=== PATIENT | female | born 1985 | race African-American/Black ===

== ENCOUNTER 2021-02-10 15:12 | Emergency (ER) | payer OTHER, SELFPAY ==
--- NOTE | ~2021-02-10 | US_ITS ---
EXAMINATION: US VENOUS ULTRASOUND WITH DOPPLER LOWER EXTREMITY, BILATERAL CLINICAL INFORMATION: Leg swelling after tummy tuck COMPARISON: None TECHNIQUE: Ultrasound of the deep veins is performed from the hip to the calf with compression sonography and color and pulse Doppler assessment. Spectral analysis with color-flow imaging is performed. FINDINGS: RIGHT: There is normal venous compression and respiratory variation and augmented flow. The visualized common femoral vein, superficial femoral vein, profunda femoral vein, popliteal vein, and the trifurcation region shows no evidence of deep venous thrombosis. There is no significant popliteal fossa cyst. LEFT: There is normal venous compression and respiratory variation and augmented flow. The visualized common femoral vein, superficial femoral vein, profunda femoral vein, popliteal vein, and the trifurcation region shows no evidence of deep venous thrombosis. There is no significant popliteal fossa cyst. If the patient's symptoms persist, followup ultrasound in 5 days 7 days might be of value to exclude proximal propagation from a non-visualized calf vein. US/US venous duplex LE BI IMPRESSION: No DVT demonstrated in the bilateral lower extremity.
[2021-02-10 16:05] VITALS: BP 119/75; PULSE 84; RESP 18; TEMP 36.9; O2SAT 100; BMI 49.5
[2021-02-10 18:29] LABS: MANUAL DIFF FLAG NO
[2021-02-10 18:37] LABS: D Dimer 632 NG/ML
[2021-02-10 18:55] LABS: Basophils Percent Auto 0.3 % (0-2); Eosinophils Absolute Auto 0.1 X10*3/uL (0.0-0.4); Eosinophils Percent Auto 1.3 % (0-4); Hematocrit 32.6 % (37-47); Hemoglobin 10.6 g/dl (12.0-16.0); Imm Gran Abs Auto 0.04 X10*3/uL (0.00-0.03); Imm Gran Pct Auto 0.4 % (0.0-0.4); Lymphocytes Absolute Auto 2.1 X10*3/uL (1.2-4.9); Lymphocytes Percent Auto 20.7 % (20-40); Mean Corpuscular HGB Conc 32.5 g/dl (31.0-35.0); Mean Corpuscular Volume 101.6 fL (80-98); Mean Platelet Volume 10.9 fL (9.4-12.3); Monocytes Absolute Auto 0.6 X10*3/uL (0.1-1.2); Monocytes Percent Auto 6.3 % (2-11); Neutrophils Absolute Auto 7.2 X10*3/uL (2.0-8.3); Platelet Count 301 X10*3/uL (160-400); Red Blood Count 3.21 X10*6/uL (4.20-5.50); Red Cell Distribution Width 13.4 % (11.0-16.0); White Blood Count 10.1 X10*3/uL (4.8-10.8)
[2021-02-10 19:07] LABS: Alanine Aminotransferase 17 U/L (0-31); Albumin Level 3.9 g/dL (3.5-5.0); Alkaline Phosphatase 63 U/L (39-117); Anion Gap 12 (12-20); Aspartate Amino Transferase 18 U/L (5-31); Bilirubin Total 0.6 mg/dL (0.0-1.0); Blood Urea Nitrogen 7 mg/dL (9-16); Calcium 8.9 mg/dL (8.4-10.2); Carbon Dioxide 28 mmol/L (22-29); Chloride 105 mmol/L (96-108); Creatinine Clr Calc Pharmacy 177.3; Estimated Glomerular Filt Rate > 60; Glucose Random 92 mg/dL (60-115); Sodium 141 mmol/L (135-145)
--- NOTE | 2021-02-10 20:17 | ED.GENADULT ---
HPI - General Adult General Chief complaint: Extremity Injury, Lower Stated complaint: wound check, leg swelling Time Seen by Provider: 02/10/21 20:17 Source: patient Mode of arrival: ambulatory Limitations: no limitations History of Present Illness HPI narrative: patient with weakness and ankle swelling after a tummy tuck. Surgery was two weeks ago but patient now concerned about DVT Related Data Allergies Allergy/AdvReac Type Severity Reaction Status Date / Time No Known Allergies Allergy Verified 02/10/21 16:05 Review of Systems Neurologic: Denies Sensory deficit (Neuro) [facility] Social History Social History Advance Directives: No Advance Directives Information Provided: Yes Patient : No Physical Exam Vital Signs: Vital Signs: Last Vital Signs Temp 98.5 F 02/10/21 16:05 Pulse 84 02/10/21 16:05 Resp 18 02/10/21 16:05 BP 119/75 02/10/21 16:05 Pulse Ox 100 02/10/21 16:05 Body Mass Index 49.5 Const: General: healthy appearing Nutritional Appearance: obese Orientation/consciousness: oriented to person and patient oriented x3 Limitations: no limitations HENMT: Head: Yes normal to inspection Ears: external ears normal General nose exam: Normal external nose present Mouth: Normal oral and palatal mucosa present and oropharynx normal Throat: Yes posterior oropharynx normal Eyes: General: appearance normal, both eyes and all related structures Neck: Other: supple Neck: Yes normal visual inspection Chest: Chest palpation & inspection: normal inspection of the chest Resp: Auscultation: clear to auscultation bilaterally Cardio: Jugular venous distension: no JVD Rate: regular rate Rhythm: regular rhythm Heart sounds: S1 normal heart sound present and S2 normal heart sound present GI: Inspection: Yes normal to inspection Palpation (GI): Soft to palpation, nontender and No hepatosplenomegaly present Auscultation: normal bowel sounds : General: Yes no CVA tenderness Back/Spine/Pelvis: Back: no CVA tenderness Skin: Other: healing tummy tuck wound appears to be healing well, no erythema or cellulitis observed Neuro: General: oriented to person and patient oriented x3 Cranial nerves: Yes CN's II-XII intact bilaterally Motor exam (neuro): 5/5 motor strength present throughout Sensory Exam: No Sensory deficit (Neuro) Extrem: General: Yes normal to inspection Psych: Appearance: grossly normal Course Reevaluation(s) Reevaluation #1: Edema secondary to mobilization of fluids from surgery, no evidence of cellulitis, will dc home Time: 21:39 Medical Decision Making Lab Data Result diagrams: 02/10/21 18:21 02/10/21 18:20 Labs: Lab Results 02/10/21 02/10/21 02/10/21 Range/Units 18:20 18:20 18:21 WBC 10.1 (4.8-10.8) X10*3/uL RBC 3.21 L (4.20-5.50) X10*6/uL Hgb 10.6 L (12.0-16.0) g/dl Hct 32.6 L (37-47) % MCV 101.6 H (80-98) fL MCH 33.0 (27.0-33.0) pg MCHC 32.5 (31.0-35.0) g/dl RDW 13.4 (11.0-16.0) % Plt Count 301 (160-400) X10*3/uL MPV 10.9 (9.4-12.3) fL Immature Gran % (Auto) 0.4 (0.0-0.4) % Neut % (Auto) 71.0 (45-73) % Lymph % (Auto) 20.7 (20-40) % [place] % (Auto) 6.3 (2-11) % Eos % (Auto) 1.3 (0-4) % Baso % (Auto) 0.3 (0-2) % Lymph # (Auto) 2.1 (1.2-4.9) X10*3/uL [place] # (Auto) 0.6 (0.1-1.2) X10*3/uL Eos # (Auto) 0.1 (0.0-0.4) X10*3/uL Baso # (Auto) 0.0 (0.0-0.2) X10*3/uL Abs Immat Gran (auto) 0.04 H (0.00-0.03) X10*3/uL Absolute Neuts (auto) 7.2 (2.0-8.3) X10*3/uL Absolute Nucleated RBC 0.000 (0.0-0.012) X10*3/uL Nucleated RBC % (auto) 0.0 (0.0-0.2) /100WBC D-Dimer 632 NG/ML Sodium 141 (135-145) mmol/L Potassium 4.0 (3.3-5.1) mmol/L Chloride 105 (96-108) mmol/L Carbon Dioxide 28 (22-29) mmol/L Anion Gap 12 (12-20) BUN 7 L (9-16) mg/dL Creatinine 0.74 (0.5-1.4) mg/dL Estim Creat Clear Calc 177.3 Estimated GFR > 60 Random Glucose 92 (60-115) mg/dL Calcium 8.9 (8.4-10.2) mg/dL Total Bilirubin 0.6 (0.0-1.0) mg/dL AST 18 (5-31) U/L ALT 17 (0-31) U/L Alkaline Phosphatase 63 (39-117) U/L Total Protein 7.0 (6.5-8.0) g/dL Albumin 3.9 (3.5-5.0) g/dL Imaging Data duplex of legs bilateral: Radiologist's impression: IMPRESSION: No DVT demonstrated in the bilateral lower extremity. Discharge Plan Discharge Clinical Impression: Leg edema, Surgical wound present Patient Disposition: Home, Self-Care Additional Instructions: follow the instructions of your surgeon Referrals: Physician,Unknown [Primary Care Provider] - 2 days
== END 2021-02-10 21:53 | disposition home or self-care (01) ==
PROVIDERS: Emergency Provider Emergency Medicine
DX: R53.1 Weakness (principal); R60.0 Localized edema; Z98.890 Other specified postprocedural states
CPT/HCPCS: 36415; 80053; 85025; 85379; 93970; 99282; 99284

== ENCOUNTER 2025-05-30 22:41 | Emergency (ER) | payer OTHER, SELFPAY ==
--- OUTSIDE RECORDS SUMMARY | 2025-04-29 07:30 | XMS_ITS | Continuity of Care Document ---
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 Role Phone Matheus RAI, RVT, RPDIONICIO, Willie Unavailable U navailable Allergies, Adverse Reactions, Alerts Substance Reaction Status Criticality No Known Allergies Active No Inform ation Procedures Procedure Date Duplex Scan-extrem Veins; Uni/ CT & [place] N Duplex Scan-extrem Veins; Uni/ CT & [place] O ct Inj Scleros Solut; Mx Veins 1- CT & [place] O ct Ultrason Guidan Needle Bx-rad- CT & MA O ct Inj Scleros Solut; Mx Veins 1- CT & [place] O ct Ultrason Guidan Needle Bx-rad- CT & [place] O ct Duplex Scan-extrem Veins; Uni/ CT & [place] O ct Duplex Scan-extrem Veins; Uni/ CT & [place] O ct Endovenous Laser, 1st Vein- CT & [place] Endovenous Rf, 1st Vein- CT & [place] 2024 Ultrason Guidan Needle Bx-rad- CT & MA S Inj Sclerosing Solution; Sngl- CT & MA S Offic/outpt E&m Estab 5 Min Trial- Telem edicine CT & MA Offic Cons New/estab Mod-hi 80- CT & [place] Surgical Stockings CVR Reveal Knee High Duplex Scan-extrem Veins; Comp- CT & [place] Advance Directives Directive Yes / No Effective Date File Name No Information Encounters Encounter Description Practice Location Reason(s) For Visit Diagnoses Date Provider Providers Copied on Encounter [facility] MD [place], [address] [place] [address] Dr Sanchez [address], [id number], tel:[phone] [place] - [place] Encounter for follow-up examination after completed treatment for conditions other than malignant neoplasmChroni c venous hypertension (idiopathic) with other complications of right lower extremity 5 Matheus RAI RVT, ASHELY Tapia. [address], [address], [place], [id number] , [place]. [phone] Referring Provider: Willie Jarvis MD, RVT, ASHELY, [address] [place] [address] [address], [place], [address] . tel:[phone] Mathews Sachin [facility] MD [place], [address] [place] [address] Dr Sanchez [address], [id number], [place] tel:[phone] [place] Encounter for follow-up examination after completed treatment for conditions other than malignant neoplasmChroni c venous hypertension (idiopathic) with other complications of right lower extremity 5 Matheus RAI RVT, ASHELY Tapia. [address], [address], [facility], [id number] , [place]. tel:[phone] Referring Provider: Willie Jarvis MD, RVT, ASHELY, [address] [place] [address] [address], [place], [address] . tel:[phone] [facility], [address] [place] [address] Dr Sanchez [address], [id number], [place] tel:[phone] CVR - [facility] Varicose veins of right lower extremity with other complications 5 Lianna Avendano . [address], [address], [facility], [place], [id number] , [place]. [phone] Mathews Sachin [facility], [address] [place] [address] Dr [address], [id number], [place] tel:[phone] [place] Varicose veins of right lower extremity with other complications Oct-2 3- 5 Lianna Avendano . [address], [address], [place], [id number] , [place]. [phone] Referring Provider: Romana Dsouza NP, [address] [place] [address] [address], [place], [address] . tel:[phone] [facility], [address] [place] [address] [address], [id number], [place] tel:[phone] [place] Encounter for follow-up examination after completed treatment for conditions other than malignant neoplasmPain in right lower leg Oct-0 9- 5 Matheus RAI RVT, ASHELY Tapia. [address] [place] [address], [address], [place], [place], [id number] , [place]. tel:[phone] Referring Provider: Willie Jarvis MD, RVT, RPDIONICIO, [address] [place] [address] [address], [place], [address] . tel:[phone] [facility], [address] [place] [address] [address], [id number], [place] tel:[phone] CVR - [place] Encounter for follow-up examination after completed treatment for conditions other than malignant neoplasmPain in right leg Oct-0 - 5 Matheus RAI RVT, RPDIONICIO Tapia. [address] [place] [address], [address], [place], [id number] , [place]. tel:[phone] Referring Provider: Willie Jarvis MD, RVT, RPDIONICIO, [address] [place] [address] [address], [place], [address] . tel:[phone] [facility], [address] [place] [address] [address], [id number], [place] tel:[phone] [place] Varicose veins of right lower extremity with other complications Oct-0 5 Matheus RAI RVT, RPVI Robert. [address] [place] [address], [place], [id number] , [place]. [phone] Referring Provider: [facility], [address] [place] [address], [place], [address]. tel:[phone] [facility], [address] [place] [address] [facility] [address] [address], [id number], [place] [phone] CVR - [facility] No Information Sep-2 5 Matheus RAI RVT, RPVI Robert. [address] [place] [address], [place], [id number] , [place]. tel:[phone] [facility], [address] [place] [address] Dr Sanchez [address] [address], [id number], [place] [phone] CVR - [facility] Chronic venous hypertension (idiopathic) with inflammation of right lower extremity Sep- 5 Matheus RAI RVT, RPVI Robert. [address] [place] [address], [place], [id number] , [place]. [phone] Referring Provider: Willie Jarvis MD, RVT, ASHELY, [address] [place] [address], [place], [address] . tel:[phone] Offic/outpt E&m Estab 5 Min Trial- Telemedicine CT & [place] [facility], [address] [place] [address] [facility] [address] [address], [id number], [place] [phone] CVR - [facility] Localized edemaCramp and spasmRestless legs syndromeVenous insufficiency (chronic) (peripheral)Pr uritus, unspecified 5 Matheus RAI RVT, RPVI Robert. [address] [place] [address], [place], [id number] , [place]. [phone] Referring Provider: [facility], [address] [place] [address], [place], [address]. tel:[phone] Offic Cons New/estab Mod-hi 80- CT & [place] [facility], [address] [place] [address] [address], [place], [id number], tel:[phone] CVR - [place] Varicose veins of bilateral lower extremities with other complicationsP ain in right lower legPain in left lower legPain in right legRestless legs syndromePrurit us, unspecifiedPai n in left legCramp and spasmLocalized edema 5 Matheus RAI RVT, ASHELY Tapia. [address] [place] [address], [place], [place], [id number] , [place]. tel:[phone] [facility], [address] [place] [address] Dr Sanchez [address], [id number], tel:[phone] [facility] Chronic venous hypertension (idiopathic) with other complications of bilateral lower extremity 5 Matheus RAI RVT, ASHELY Tapia. [address] [place] [address], [facility] [place], [id number] , . tel:[phone] Referring Provider: Willie Jarvis MD, RVT, ASHELY, [address] [place] [address], [place], [address] . tel:[phone] Family History Family Member Type Diagnosis Age At Onset No Information Payers Payer name Insurance type Covered constitution party ID Authorjessicaa sam(s) [facility] CI [id number] Social History Type Description Quantity Date Captured Comments Sex Female Smoking Status No Information Chief Complaint And Reason For Visit No Information Reason For Referral Reason For Referral No Information Plan Of Treatment Date Type Action Status Goal Diet education completed Goal Diet education completed Referral Ordered: Weight management: Referral to physician timeframe: 3 Months (related to Body mass index (BMI) 45.0-49.9, adult) ordered Referral Ordered: Weight management: Referral to physician timeframe: 3 Months (related to Body mass index (BMI) 45.0-49.9, adult) ordered Appointment Micaela Arizmendi BOOKED Appointment Micaela Arizmendi BOOKED Appointment Micaela Arizmendi BOOKED Appointment Micaela Arizmendi BOOKED Appointment Micaela Arizmendi BOOKED Appointment Micaela Arizmendi BOOKED Appointment Micaela Arizmendi BOOKED Appointment Micaela Arizmendi BOOKED History Of Present Illness Encounter Date Complaint History Of Prese nt Illness No Information Functional Status Date Functional Assessmen t No Information Instructions Date Instruction Additional Infor saud Patient education booklet given Related to Localized edema Lifestyle education Related to B trae mass index (BMI) 45.0-49.9, adult Giving Encouragement to exercise Related to Body mass index (BMI) 45.0-49.9, adult Pre and post instruc tions reviewed and provided Related to Localized edema Diet education Related to Body mass index (BMI) 45.0-49.9, adult Lifestyle education Related to B trae mass index (BMI) 45.0-49.9, adult Giving Encouragement to exercise Related to Body mass index (BMI) 45.0-49.9, adult Diet education Related to Body mass index (BMI) 45.0-49.9, adult Pre and post instruc tions reviewed and provided Related to Varicose veins of bilateral lower extremities with other complications Patient education booklet given Related to Varicose veins of bilateral lower extremities with other complications Assessments Type Assessment Date No Information Patient Care Teams Name Effective Dates (start - stop) Status Members No Information
--- NOTE | 2025-05-30 | ECG_ITS ---
Test Reason : DIZZINESS Blood Pressure : */* mmHG Vent. Rate : 94 BPM Atrial Rate : 94 BPM P-R Int : 150 ms QRS Dur : 94 ms QT Int : 376 ms P-R-T Axes : 63 51 41 degrees QTcB Int : 470 ms Normal sinus rhythm Normal ECG No previous ECGs available Referred By: Generic ED Physician Electronically Signed By: KAYLIE PATEL
[2025-05-30 22:52] VITALS: BP 148/73; PULSE 93; RESP 16; TEMP 36.6; O2SAT 100; BMI 50.2
[2025-05-30 23:16] LABS: Hematocrit 37.7 % (37.0-47.0); Hemoglobin 12.2 g/dl (12.0-16.0); Imm Gran Abs Auto 0.01 X10*3/uL (0.00-0.03); Imm Gran Pct Auto 0.1 % (0.0-0.4); Lymphocytes Absolute Auto 1.9 X10*3/uL (1.2-4.9); Mean Corpuscular HGB Conc 32.4 g/dl (31.0-35.0); Mean Corpuscular Hemoglobin 31.7 pg (27.0-33.0); Mean Corpuscular Volume 97.9 fL (80.0-98.0); NRBC Abs Auto 0.000 X10*3/uL (0.0-0.012); NRBC Pct Auto 0.0 /100WBC (0.0-0.2); Platelet Count 225 X10*3/uL (160-400); Red Blood Count 3.85 X10*6/uL (4.20-5.50); White Blood Count 7.9 X10*3/uL (4.8-10.8)
[2025-05-30 23:33] LABS: Alanine Aminotransferase 15 U/L (0-31); Albumin Level 4.6 g/dL (3.5-5.0); Alkaline Phosphatase 65 U/L (39-117); Anion Gap 16 (12-20); Aspartate Amino Transferase 24 U/L (5-31); Blood Urea Nitrogen 18 mg/dL (9-16); Calcium 9.2 mg/dL (8.4-10.2); Carbon Dioxide 22 mmol/L (22-29); Chloride 107 mmol/L (96-108); Creatinine Clr Calc Pharmacy 146.2; Estimated Glomerular Filt Rate > 60; Potassium 3.6 mmol/L (3.3-5.1); Sodium 141 mmol/L (135-145); Total Protein 8.0 g/dL (6.5-8.0)
[2025-05-30 23:41] LABS: Troponin-I High Sensitivity < 2.7 ng/L (<3.5-17.0)
[2025-05-30 23:52] LABS: Resp Syncy Virus RNA Qual PCR NEGATIVE (Negative); SARS COV2 PCR INHOUSE NEGATIVE (Negative)
--- NOTE | 2025-05-31 00:56 | ED_ITS ---
HPI - General Adult General Chief complaint: General Medical Stated complaint: General Medical Time Seen by Provider: 05/31/25 00:40 Source: patient Limitations: no limitations History of Present Illness ED Provider: Jayda Wright PA-C HPI narrative: 40-year-old female with a history of anxiety presents with generalized malaise. Patient states while she was at work, she began to ?feels sick?. Associated headache, dizziness, nausea and chest discomfort. Patient states her anxiety was triggered today. Her chest discomfort resolved on its own. Overall her symptoms have improved, she thought she may be dehydrated. She states she has had poor oral intake over the past day and a half. Denies abdominal pain, back pain, dysuria, active vomiting, diarrhea, cough cold symptoms or fever. No sick contacts with similar symptoms. Related Data Allergies Allergy/AdvReac Type Severity Reaction Status Date / Time No Known Allergies Allergy Verified 05/30/25 22:52 Review of Systems 2 Review of Systems: Yes all other systems are reviewed and are negative Constitutional: Constitutional: Denies fatigue, Denies fever(s), Reports headache(s) and Reports malaise ENT: Reports dizziness and Reports headache(s) Cardiovascular: Cardiovascular: Reports chest pain and Denies dyspnea Respiratory: Respiratory: Denies cough and Denies dyspnea Gastrointestinal: Gastrointestinal: Denies abdominal pain, Reports nausea and Denies vomiting Neurologic: Reports dizziness and Reports headache(s) Psychiatric: Psychiatric: Reports anxiety Endocrine: Endocrine: Denies fatigue [facility] Past Medical History Attestation statement: The following information was validated with the patient. Social History Social History Advance Directives: No Advance Directives Information Provided: No Do you have a plan to hurt others: No Plan Physical Exam ED Vital Signs: Vital Signs - 24 hr 05/30/25 22:52 05/31/25 01:41 Temperature 97.9 F 98 F Pulse Rate 93 80 Respiratory Rate 16 17 Blood Pressure 148/73 H 113/76 Pulse Oximetry 100 97 Oxygen Delivery Method Room Air Room Air BMI result Body Mass Index 50.2 Const Other: Alert, well-appearing Orientation/consciousness: patient oriented x3 Resp Effort & Inspection: normal respiratory effort Cardio Other: Normal peripheral perfusion Skin Other: Warm dry no rash Neuro General: patient oriented x3, gait normal, no focal motor deficits and CN's II- XI intact bilaterally Psych Other: Cooperative Medical Decision Making Medical Decision Making MDM Narrative: 40-year-old female with a history of anxiety presents with generalized malaise. Patient states while she was at work, she began to ?feels sick?. Associated headache, dizziness, nausea and chest discomfort. Patient states her anxiety was triggered today. Her chest discomfort resolved on its own. Overall her symptoms have improved, she thought she may be dehydrated. She states she has had poor oral intake over the past day and a half. Denies abdominal pain, back pain, dysuria, active vomiting, diarrhea, cough cold symptoms or fever. No sick contacts with similar symptoms. Problem: Anxiety History: Per patient I have considered the following differential diagnoses: Viral syndrome, dehydration, ACS, anxiety Plan: Patient is here with a very nonspecific symptoms. ACS was considered, although her presentation is not consistent with a ACS and she has only obesity has a risk factor for coronary artery disease, screening labs including EKG and troponin obtained. A viral panel also obtained, it was negative. I added on a test that was negative. I have independently reviewed the following tests: Labs: No leukocytosis, not anemic, no electrolyte abnormality, viral panel negative, not , troponin negative EKG: Normal sinus rhythm, rate 94, no ischemic changes no ectopy QTC 470 Differential Diagnosis Differential Diagnoses: The differential diagnosis associated with the presentation includes See [facility] Admission/Observation Consideration of admission/observation: Escalation of care including admission/observation considered Not applicable Lab Data [facility] Lab Attestation statement: I reviewed the patient's lab results. 05/30/25 23:06 05/30/25 23:06 Labs: Lab Results 05/30/25 Range/Units 23:06 WBC 7.9 (4.8-10.8) X10*3/uL RBC 3.85 L (4.20-5.50) X10*6/uL Hgb 12.2 (12.0-16.0) g/dl Hct 37.7 (37.0-47.0) % MCV 97.9 (80.0-98.0) fL MCH 31.7 (27.0-33.0) pg MCHC 32.4 (31.0-35.0) g/dl RDW 12.6 (11.0-16.0) % Plt Count 225 (160-400) X10*3/uL MPV 11.0 (9.4-12.3) fL Immature Gran % (Auto) 0.1 (0.0-0.4) % Neut % (Auto) 67.0 (45-73) % Lymph % (Auto) 24.7 (20-40) % [place] % (Auto) 7.5 (2-11) % Eos % (Auto) 0.3 (0-4) % Baso % (Auto) 0.4 (0-2) % Lymph # (Auto) 1.9 (1.2-4.9) X10*3/uL [place] # (Auto) 0.6 (0.1-1.2) X10*3/uL Eos # (Auto) 0.0 (0.0-0.4) X10*3/uL Baso # (Auto) 0.0 (0.0-0.2) X10*3/uL Abs Immat Gran (auto) 0.01 (0.00-0.03) X10*3/uL Absolute Neuts (auto) 5.3 (2.0-8.3) x10*3/uL Absolute Nucleated RBC 0.000 (0.0-0.012) X10*3/uL Nucleated RBC % (auto) 0.0 (0.0-0.2) /100WBC Sodium 141 (135-145) mmol/L Potassium 3.6 (3.3-5.1) mmol/L Chloride 107 (96-108) mmol/L Carbon Dioxide 22 (22-29) mmol/L Anion Gap 16 (12-20) BUN 18 H (9-16) mg/dL Creatinine 0.87 (0.5-1.4) mg/dL Estim Creat Clear Calc 146.2 Estimated GFR > 60 Random Glucose 91 (60-115) mg/dL Calcium 9.2 (8.4-10.2) mg/dL Total Bilirubin 0.7 (0.0-1.0) mg/dL AST 24 (5-31) U/L ALT 15 (0-31) U/L Alkaline Phosphatase 65 (39-117) U/L Troponin I High Sens < 2.7 (<3.5-17.0) ng/L Total Protein 8.0 (6.5-8.0) g/dL Albumin 4.6 (3.5-5.0) g/dL Beta HCG, Quant < 2 mIU/mL Influenza Type A (PCR) NEGATIVE (Negative) Influenza Type B (PCR) NEGATIVE (Negative) RSV RNA Qual (PCR) NEGATIVE (Negative) SARS-CoV-2 RNA (RT-PCR) NEGATIVE (Negative) Independent Interpretation I performed an independent interpretation of an: EKG Radiology Impression Discussion of test interpretation with radiology: I have reviewed the radiologist's reading. Discharge Plan Discharge Clinical Impression: Malaise, Chest pain, Anxiety Patient Disposition: Home, Self-Care Instructions: Noncardiac Chest Pain (ED), Anxiety (ED) Additional Instructions: All of your screening labs including a cardiac enzymes were normal. There were no concerning changes on the EKG. You were tested for influenza and COVID the viral panel was negative. Follow up with your primary care provider as needed. Interventions: ED Discharge Assessment Last Done: 05/31/25 01:41 Discharge Date/Time: 05/31/25 01:50 Print Language: Mexican
[2025-05-31 01:41] VITALS: BP 113/76; PULSE 80; RESP 17; TEMP 36.6; O2SAT 97
== END 2025-05-31 01:50 | disposition home or self-care (01) ==
PROVIDERS: Physician Assistant Medical; Emergency Provider Emergency Medicine
DX: R07.89 Other chest pain (principal); F41.9 Anxiety disorder, unspecified; R51.9 Headache, unspecified; R42 Dizziness and giddiness; Z03.818 Encounter for observation for suspected exposure to other biological agents ruled out
CPT/HCPCS: 36415; 80053; 84484; 84702; 85025; 87637; 93005; 99283

== ENCOUNTER → 2025-05-30 23:01 | Outpatient (BNV) | payer OTHER, SELFPAY | PROVIDERS: Emergency Provider Emergency Medicine; Visit Provider Internal Medicine | DX: R42 Dizziness and giddiness (principal) | CPT/HCPCS: 93010 ==